=== PATIENT | female | born 1940 | race Caucasian/White ===

== ENCOUNTER 2023-04-04 08:58 | Emergency (ER) | payer MEDICARE, SELFPAY ==
[2023-04-04 09:06] VITALS: BP 160/77; PULSE 87; O2SAT 97
[2023-04-04 09:09] VITALS: BP 160/77; PULSE 96; PULSE 97; RESP 17; TEMP 36.6; O2SAT 96; O2SAT 97; BMI 37.5
--- NOTE | 2023-04-04 09:15 | CT_ITS ---
FINAL REPORT CLINICAL HISTORY: fall from bed, head injury FINDINGS: Axial CT images of the cervical spine were obtained without contrast. Sagittal and coronal reformatted images were also obtained. This study was performed with techniques to keep radiation doses as low as reasonably achievable (ALARA). Individualized dose reduction techniques using automated exposure control or adjustment of mA and/or kV according to the patient's size were employed. There is no evidence of fracture or dislocation. There are moderate degenerative changes. There is mild anterolisthesis of C4 on 5. Multilevel neuroforaminal narrowing is identified. IMPRESSION: No acute fracture. Reviewed, Interpreted and Dictated by Len Najera III, MD Transcribed by Laurita Cobos Authenticated and [facility]
--- NOTE | 2023-04-04 09:15 | CT_ITS ---
FINAL REPORT CLINICAL HISTORY: fall from bed, head injury, hit right side ear. small lac on ear FINDINGS: Axial images of the head were obtained without contrast. Coronal reformatted images were also obtained. This study was performed with techniques to keep radiation doses as low as reasonably achievable (ALARA). Individualized dose reduction techniques using automated exposure control or adjustment of mA and/or kV according to the patient''s size were employed. There is generalized age-appropriate atrophy. Periventricular low-attenuation areas are seen consistent with mild chronic ischemic changes. There is no evidence of intracranial hemorrhage or mass. There is no evidence of acute infarct. There are several chronic bilateral lacunar infarcts. There is no evidence of shift of the midline structures. No skull abnormality is seen on the bone window images. IMPRESSION: Atrophy and mild periventricular chronic ischemic changes. No acute intracranial abnormality identified. Reviewed, Interpreted and Dictated by Len Najera III, MD Transcribed by Laurita Cobos Authenticated and [facility]
--- NOTE | 2023-04-04 09:16 | HMH.EDGENADL ---
Discharge Plan Disposition Patient Disposition: Home, Self-Care Condition: Good Referrals Follow up/Referrals: Chelsie Crews [Primary Care Provider] - See instructions Activity Restrictions/Add. Instructions Additional Instructions/Restrictions: You were evaluated in the emergency department today. Please keep your dressing on for the next 2 hours. Monitor closely for any developing hematoma, which will be indicated by significant swelling and purple discoloration to the ear. Return to the emergency department should this develop. Also monitor for signs of infection, such as redness, warmth, pus draining from the wounds, or other concerns. Return to the emergency department should this happen. Return to the emergency department for any premature dissolving of sutures or dehiscence of the wound. Keep the area clean and dry. Do not submerge under any water. Do not use peroxide or alcohol on the area. The sutures will dissolve on their own. Clinical Impressions Clinical Impression: Complex laceration of right ear Qualifiers: Encounter type: initial encounter Qualified Code(s): S01.311A - Laceration without foreign body of right ear, initial encounter Instructions Patient Instructions: DI for Laceration Repair Discharge ED Provider: Sade Pinedo General Adult HPI General Chief complaint: Wound/Laceration Stated complaint: [id number] right ear injury Time Seen by Provider: 04/04/23 09:05 Mode of Arrival: Ambulatory Source of Information: Patient Limitations: No Limitations Description of Symptoms (Recalled from ER Triage Doc. by RN): Pt states that at approx 0500 she rolled out of her bed and sustained a laceration on her right ear. Patient reports that she did not lose consciousness. Denies any neck or back pain. Denies any injury other than the laceration on her ear. Pt is alert and oriented x 4 and gcs 15 upon arrival. History of Present Illness HPI narrative: This patient is an 82-year-old female presented to the emergency department with concern for laceration to her right ear. She states that she rolled out of bed at approximately 5:00 this morning and hit her ear on the bedside table. She did not lose consciousness and denies any pain. She states that she has been up at home cleaning and doing laundry since then, but her daughter urged her to come to get her ear looked at. She states her last tetanus shot was 2 days ago, as she got it updated with her yearly flu shot. She denies any headache, vision changes, numbness, tingling, chest pain, back pain, abdominal pain, or other concerns. She is ambulatory, alert and oriented, and has no other complaints at this time. She does not take blood thinners. Related Data Allergies Allergy/AdvReac Type Severity Reaction Status Date / Time No Known Allergies Allergy Unverified 07/16/17 14:11 [facility] Disclaimer: The information contained in this section may have been updated after the patient was seen, as this information can be updated by other users. Social History Smoking Status: Never smoker alcohol intake: never current occupational status: retired Travel in the last 8 weeks: None ROS Obtained: Yes All systems reviewed & no additional complaints except as documented Physical Exam General General appearance: alert and in no apparent distress Head Head exam: atraumatic and normocephalic Eye Eye exam: Present normal appearance, PERRL and EOMI ENT ENT exam: Present normal oropharynx, mucous membranes moist and other (Complex 3cm irregular laceration to the helix cartilage of the right ear that is hemostatic.); Absent normal external ear exam Neck Neck exam: Present normal inspection, full ROM and trachea midline; Absent tenderness Chest Chest inspection: Present normal inspection and symmetric chest wall rise; Absent tenderness Respiratory Respiratory exam: Present normal lung sounds bilatera
--- NOTE | 2023-04-04 10:33 | PC.NURSE ---
still at bs
[2023-04-04 11:56] VITALS: BP 128/80; PULSE 78; RESP 17; TEMP 36.7; O2SAT 98
== END 2023-04-04 11:58 | disposition home or self-care (01) ==
PROVIDERS: Emergency Provider Emergency Medicine; PCP Nurse Practitioner Family
DX: S01.311A Laceration without foreign body of right ear, initial encounter (principal); W06.XXXA Fall from bed, initial encounter
CPT/HCPCS: 12052; 70450; 72125; 99285

== ENCOUNTER 2024-10-06 08:28 | Inpatient (IN) | payer MEDICARE, SELFPAY ==
[2024-10-06] VITALS (17 sets, daily range): BP systolic 95–151; BP diastolic 61–123; PULSE 65–160; RESP 12–19; TEMP 36.6–36.8; O2SAT 91–98; BMI 40.7; BMI 42.9
--- NOTE | 2024-10-06 08:34 | ECG_ITS ---
APPROVED REPORT Exam: Resting ECG HR:163 bpm ECG Measurements Heart Rate 163 AXES QRSd 91 QRS -6 QT 272 T 86 QTc 362 Conclusion A-fib with RVR ST depressions Electronically signed by : TAVON MCMULLEN, 10/08/2024 23:22:15
--- NOTE | 2024-10-06 08:45 | XR_ITS ---
FINAL REPORT TECHNIQUE: Single view chest CLINICAL HISTORY: soa, palps FINDINGS: A single view of the chest was obtained. There is mild cardiomegaly. Patchy airspace opacities seen at the right lung base likely due to acute pneumonia. There is chronic scarring in the lungs bilaterally. There is no pneumothorax. IMPRESSION: Patchy airspace opacities of the right lung base likely due to acute pneumonia. Reviewed, Interpreted and Dictated by Bo Mckeon MD Transcribed by Fallon Taylor Authenticated and [facility] [place] [place]
--- NOTE | 2024-10-06 08:48 | PC.NURSE ---
RUBEN WALTERS NOTIFIED RESPIRATORY OF [facility]
[2024-10-06 08:50] LABS: Basophils # 0.1 K/mm3 (0-0.2); Basophils % 0.6 % (0.1-2.0); Eosinophils # 0.1 K/mm3 (0.0-0.4); Eosinophils % 1.1 % (0.1-12.0); Hematocrit 41.7 % (37.0-47.0); Hemoglobin 13.2 g/dL (12.2-16.2); Lymphocytes # 2.1 K/mm3 (0.7-4.5); Lymphocytes % 23.6 % (10-50); Mean Corpuscular HGB Conc 31.7 g/dL (31.8-35.4); Mean Corpuscular Hemoglobin 29.8 pg (27.0-31.2); Mean Corpuscular Volume 94.1 fl (81-99); Monocytes % 10.9 % (1.7-9.3); Neutrophils # 5.6 K/mm3 (1.8-7.8); Neutrophils % 63.6 % (37.0-80.0); Platelet Count 226 K/mm3 (142-424); Red Blood Count 4.43 M/mm3 (4.20-5.40); Red Cell Distribution Width 12.9 % (11.5-17.5); White Blood Count 8.8 K/mm3 (4.8-10.8)
[2024-10-06 08:52] LABS: Lactate Venous 1.9 mmol/L (0.4-2.0); VBG HCO3 24.2 mmol/L (23-30); VBG Oxygen Saturation 79.4 % (50-70); VBG PCO2 41.8 mmol/L (35-51); VBG PH 7.38 mmol/L (7.31-7.41); VBG Total CO2 25.5 mmol/L (23-27)
[2024-10-06] MEDS: RINGERS SOLUTION,LACTATED 500 ML 999 ML IV (09:00)
[2024-10-06] MEDS: ASPIRIN 81MG CHEWABLE TABLET 324 MG PO (09:00)
[2024-10-06] MEDS: METOPROLOL TARTRATE 5MG/5ML VIAL 5 MG IV ×2 (09:00→11:33)
[2024-10-06 09:01] LABS: Activated Partial Thrombo Time 22.8 seconds (22.5-28.5); INR 0.99 (0.9-1.1); Prothrombin Time 10.9 seconds (9.2-12.1)
--- NOTE | 2024-10-06 09:03 | ED_ITS ---
Discharge Plan Disposition Patient Disposition: Admitted Chief Complaint: Shortness of Breath/Dyspnea Clinical Impressions Clinical Impression: New onset of congestive heart failure, Atrial fibrillation, new onset Discharge ED Provider: Christian Lopez HPI General Chief Complaint: Shortness of Breath/Dyspnea Stated Complaint: SOA swelling in both feet Time Seen by Provider: 10/06/24 08:36 History of Present Illness HPI narrative: Please note that above description of symptoms, in this electronic medical record under categorization of recalled from ER triage doctor by RN are reflective of an initial nursing assessment, however, is not reflective of my full history and physical exam that was personally taken and clarified. Consequentially, this preceding description of symptoms, which may include the patient's categorized chief complaint in the EMR, do not reflect my personal clinical impression, and the ultimate description of history of present illness and patient stated complaints should be deferred to this section of the note. Unless stated otherwise or congruent with this section of the note, additional signs, symptoms, or incongruence should be interpreted as inaccurate with my clinical impression. Related Data Home Medications ?Medication ?Instructions ?Recorded ?Confirmed hydrochlorothiazide 25 mg tablet 25 mg PO DAILY 10/06/24 10/06/24 sertraline 100 mg tablet 100 mg PO DAILY 10/06/24 10/06/24 simvastatin 40 mg tablet 40 mg PO DAILY 10/06/24 10/06/24 tramadol 50 mg tablet 50 mg PO TID 10/06/24 10/06/24 Allergies Allergy/AdvReac Type Severity Reaction Status Date / Time No Known Allergies Allergy Verified 10/06/24 09:06 [facility] Disclaimer: The information contained in this section may have been updated after the patient was seen, as this information can be updated by other users. Social History Smoking Status: Never smoker alcohol intake: never current occupational status: retired Travel in the last 8 weeks: None Have you lived/traveled outside [place] in past 30 days?: No Contact w/someone who lives/traveled outside US past 30 days?: No Exposure to someone with infectious disease in past 14 days?: No Do you have a fever (greater than 100.4 F or 38 C)?: No Have you tested positive for COVID-19: No Exposed to someone with COVID-19 in past 14 days?: No Do you have a sore throat?: No Do you have a cough?: No Do you have any weakness?: No Do you have any diarrhea?: No Are you experiencing any unusual bleeding?: No Do you have any muscle aches/pain?: No Do you have any abdominal pain?: No Are you experiencing loss of taste or smell?: No ROS Obtained: Yes All systems reviewed & no additional complaints except as documented Physical Exam General General appearance: alert Neck Neck exam: Present trachea midline Chest Chest inspection: Present normal inspection and symmetric chest wall rise Respiratory Respiratory exam: Absent respiratory distress, wheezes, stridor, accessory muscle use or prolonged expiratory phase Cardiovascular Cardiovascular exam: Present bradycardia, tachycardia and other (Pulses equal and symmetric in upper and lower extremities) Extremities Exam Extremities exam: Present edema Neurological Exam Neurological exam: Present alert, oriented X3 and CN II-XII intact Skin Skin exam: Present warm and dry; Absent cyanosis, diaphoresis or pallor HEART Score HEART Score HEART Score assessment performed?: Yes History (anamnesis): Moderately suspicious ECG: Non-specific disturbance Age: >65 years Risk factors: 3 or more risk factors Troponin: </= normal limit HEART Score: 6 Critical Care Critical Care Time Critical Care Time: Yes (cardiac) Attestation: On 10/06/24, the high probability of a clinically significant, sudden or life threatening deterioration of the following system(s) required my full and direct attention, intervention and personal management. The time I documented below is in addition to time spent performing reported procedures but includes the following listed in this critical care notation. Total Time Total Critical Care Time: 45 Medical Decision Making Medical Records Medical records reviewed: Yes I reviewed the patient's medical records. John Inquiry Pt receiving controlled substance: No John was queried for this patient: No Vital Signs Vital Signs: 10/06/24 08:50 10/06/24 09:00 10/06/24 09:31 Temperature 98.2 F Temperature Source Oral Pulse Rate 115 H 116 H Pulse Rate [Left] 160 H Respiratory Rate 16 19 14 Blood Pressure 135/81 95/62 L Blood Pressure [Right Arm] 127/86 Blood Pressure Mean 99 Blood Pressure Mean [Right Arm] 99 Blood Pressure Source [Right Arm] Automatic Cuff Blood Pressure Position [Right Arm] Sitting 02 Sat by Pulse Oximetry 97 98 94 L Oxygen Delivery Method Room Air Room Air Nasal Cannula Oxygen Flow Rate (LPM) 2 10/06/24 10:00 Temperature Temperature Source Pulse Rate 108 H Pulse Rate [Left] Respiratory Rate 13 Blood Pressure 116/90 Blood Pressure [Right Arm] Blood Pressure Mean Blood Pressure Mean [Right Arm] Blood Pressure Source [Right Arm] Blood Pressure Position [Right Arm] 02 Sat by Pulse Oximetry 98 Oxygen Delivery Method Nasal Cannula Oxygen Flow Rate (LPM) 2 Lab Data Labs: Lab Results 10/06/24 08:40: WBC 8.8, RBC 4.43, Hgb 13.2, Hct 41.7, MCV 94.1, MCH 29.8, MCHC 31.7 L, RDW 12.9, Plt Count 226, MPV 12.0 H, Neut % (Auto) 63.6, Lymph % (Auto) 23.6, Cataño % (Auto) 10.9 H, Eos % (Auto) 1.1, Baso % (Auto) 0.6, Neut # (Auto) 5.6, Lymph # (Auto) 2.1, Cataño # (Auto) 1.0, Eos # (Auto) 0.1, Baso # (Auto) 0.1, PT 10.9, INR 0.99, APTT 22.8, D-Dimer 0.58 H, VBG pH 7.38, VBG pCO2 41.8, VBG pO2 44.0 H, VBG HCO3 24.2, VBG Total CO2 25.5, VBG O2 Saturation 79.4 H, VBG Base Excess -1.0, VBG Lactic Acid 1.9, Sodium 138, Potassium 3.5, Chloride 103, Carbon Dioxide 29, Anion Gap 9.5, BUN 20 H, Creatinine 0.90, Estimated Creat Clear 78, Estimated GFR 60, Est GFR ( Amer) 72, Glucose 122 H, Calcium 9.6, Magnesium 1.6, Total Bilirubin 0.6, AST 44 H, ALT 37, Alkaline Phosphatase 113, Troponin I < 0.01, NT-Pro-B Natriuret Pep 3990 H, Total Protein 6.9, Albumin 4.4, Globulin 2.5, Albumin/Globulin Ratio 1.8, Lipase 70, Thyroxine (T4) 10.9 10/06/24 08:40 10/06/24 08:40 Response Orders (Tests/Meds): ED MEDICATIONS Generic Name Dose Route Start Last Admin Trade Name Freq PRN Reason Stop Dose Admin Enoxaparin Sodium 120 mg 10/06/24 10:00 10/06/24 09:55 Enoxaparin 120mg/0.8ml Syringe SUBCUT 11/05/24 09:59 120 mg Q12H FRANCOISE Administration Discontinued Medications Generic Name Dose Route Start Last Admin Trade Name William PRN Reason Stop Dose Admin Aspirin 324 mg 10/06/24 08:45 10/06/24 09:00 Aspirin 81mg Chewable Tablet PO 10/06/24 08:46 324 mg ONCE ONE Administration Furosemide 60 mg 10/06/24 09:39 10/06/24 09:45 Furosemide 40mg/4ml Vial IV 10/06/24 09:40 60 mg ONCE ONE Administration Lactated Ringer's 500 mls @ 999 mls/hr 10/06/24 08:49 10/06/24 09:00 Lactated Ringer's 500ml IV 10/06/24 09:19 999 mls/hr .Q31M ONE Administration Metoprolol Tartrate 5 mg 10/06/24 08:49 10/06/24 09:00 Metoprolol Tartrate 5mg/5ml Vial IV 10/06/24 08:50 5 mg ONCE ONE Administration ORDERS Category Date Time Status XR chest portable Stat Exams 10/06/24 08:45 Taken Complete Blood Count Auto Diff Stat Lab 10/06/24 08:40 Completed Comprehensive Metabolic Panel Stat Lab 10/06/24 08:40 Results D-Dimer Stat Lab 10/06/24 08:40 Completed HIV Combo Stat Lab 10/06/24 08:40 Received Hepatitis C Ab Qual. W/ RFX Stat Lab 10/06/24 08:40 Received Lipase Stat Lab 10/06/24 08:40 Results Magnesium Stat Lab 10/06/24 08:40 Results NT Pro Brain Natriuretic Pep. Stat Lab 10/06/24 08:40 Results PT INR [Prothrombin Time INR] Stat Lab 10/06/24 08:40 Completed PTT [Activated Partial Thrombo Time] Stat Lab 10/06/24 08:40 Completed T4 (Thyroxine) Stat Lab 10/06/24 08:40 Results TSH [Thyroid Stimulating Hormone] Stat Lab 10/06/24 08:40 Results Troponin I Q3H Lab 10/06/24 11:45 Ordered Troponin I Q3H Lab 10/06/24 14:45 Ordered Troponin I Stat Lab 10/06/24 08:40 Results Venous Blood Gas Stat RT 10/06/24 08:40 Completed MDM Narrative Medical Decision Narrative: 83-year-old female presenting with a chief complaint of shortness of breath for 7 days. Patient believes that the symptoms coincided with changing her CPAP mask around 7 days ago. 3 days after starting a new CPAP mask patient states that she had shortness of breath and was having trouble walking around her house and completing ADLs, whereas previously she was walking 1 to 2 miles a day without issue. Also states that she has been having difficulty lying flat elevating her head at night. No cough, fever, or systemic signs or symptoms. Patient has a past medical history of hyperlipidemia, chronic bilateral shoulder pain, and occasional leg swelling for which she is taking simvastatin, tramadol, and hydrochlorothiazide chronically. She is known to Chelsie Crews NP at , and does not follow-up with any additional specialists for any other comorbid conditions. Patient admits to recent onset edema in her bilateral lower extremities. Patient denies any cough, sore throat, and heart palpitations. History was obtained via conversation with patient and daughter. On arrival, patient hemodynamically stable, alert, oriented x4, appropriate, GCS 15, moving all extremities spontaneously, pupils equal and reactive to light. Full physical exam performed and significant for tachycardia on heart auscultation and +2 pitting edema in the bilaterally lower extremities. Differential includes new onset CHF, electrolyte abnormalities, acute NSTEMI, acute thyrotoxicosis, PE, among others. Patient was given 5 mg metoprolol for symptomatic management and correction of underlying abnormalities. Patient placed on continuous cardiac monitoring and continuous pulse ox with initial blood pressure 127/86, heart rate 160, saturation 97 on room air. Independent interpretation of EKG shows A-fib with RVR 163 bpm with no acute ischemic change. QRS 91, QTc 362. Normal axis. Workup independently interpreted and significant for normal blood counts, nonactionable coags. D- dimer is years and age-adjusted negative. Patient's gas nonactionable with normal pH, normal CO2, normal bicarb and normal lactate. Chemistry nonactionable with normal kidney function. Patient's troponin is negative, but BNP nearly 4000. On independent interpretation of imaging, patient has dependent pulmonary edema. See radiology read for full review of final results. Heart score 6. On reevaluation, patient still resting comfortably. Given Lovenox and 60 mg IV Lasix because patient Lasix na?ve. Hospital medicine contacted and case was discussed at length, patient to be admitted for new onset CHF, likely exacerbating new onset A-fib. Because patient high risk for clinical decompensation, deemed appropriate for inpatient admission. Results were relayed to patient who voiced understanding and patient was agreeable to inpatient admission and management. Patient was admitted to the hospital for further definitive management. Scallop Shucker disclaimer Much of this encounter note is an electronic azure principal solution specialist spoken language to printed text. Electronic azure principal solution specialist of the spoken language may permit errors. Although I have reviewed the note, some errors may still exist.
[2024-10-06 09:04] LABS: Albumin Level 4.4 g/dl (3.5-5.0); Chloride 103 mmol/L (98-107); Sodium 138 mmol/L (136-145)
[2024-10-06 09:05] LABS: Potassium 3.5 mmoL/L (3.5-5.1)
[2024-10-06 09:07] LABS: Alanine Aminotransferase 37 U/L (12-78); Albumin/Globulin Ratio 1.8 (1.1-1.8); Alkaline Phosphatase 113 U/L (38-126); Anion Gap 9.5 mEq/L (5-15); Aspartate Amino Transferase 44 U/L (14-36); Bilirubin,Total 0.6 mg/dl (0.2-1.3); Blood Urea Nitrogen 20 mg/dl (7-17); Carbon Dioxide 29 mmol/L (22.0-30.0); Creatinine Clearance Estimated 78 mL/min (50-200); Estimated Glomerular Filt Rate 60 ml/min (>60); GFR (African American) 72 ML/MIN (>60); Globulin 2.5 g/dL (1.3-3.2); Total Protein,Serum 6.9 g/dl (6.3-8.2)
[2024-10-06 09:08] LABS: Calcium 9.6 mg/dl (8.4-10.2); Glucose 122 mg/dl (74-100); Lipase 70 U/L (23-300); Magnesium 1.6 mg/dl (1.6-2.3)
--- NOTE | 2024-10-06 09:10 | PC.NURSE ---
Stopped fluids per order
[2024-10-06 09:18] LABS: D-Dimer 0.58 ug/mL (0.0-0.5)
[2024-10-06 09:19] LABS: NT Pro Brain Natriuretic Pep. 3990 pg/mL (0-450)
[2024-10-06 09:26] LABS: T4 (Thyroxine) 10.9 ug/dl (5.53-11.0)
[2024-10-06 09:27] LABS: Troponin I < 0.01 ng/ml (0.00-0.034)
[2024-10-06] MEDS: FUROSEMIDE 40MG/4ML VIAL 60 MG IV (09:45)
--- NOTE | 2024-10-06 09:47 | PC.NURSE ---
HS aware of admission
[2024-10-06] MEDS: ENOXAPARIN 120MG/0.8ML SYRINGE 120 MG SUBCUT (09:55)
--- NOTE | 2024-10-06 10:37 | CA_ITS ---
APPROVED REPORT EXAM: Comprehensive 2D, Doppler, and color-flow Echocardiogram Larry Car Operator: Joanie Tyler RVT Ht: 5 ft 7 in Wt: 260lbs BSA: 2.26 BP: 131/66 mmHg Indications: A-FIB,CHF,SOA,MARCO A,HTN,HLD Echo Enhancing Agent Indication: Endocardial border delineation Agent(s) / Amount(s) Used: Definity 2 cc 2D Dimensions IVSd 1.44 cm F: 0.6-1.0 LVEF (Visual) 58.30 % PWd 1.29 cm F: 0.6 - 1.0 LA Volume 67.80 mL LVDd 4.26 cm F: 3.9 - 5.3 LA Volume Index 30.00 mL/m2 (M/F) 16-34 LVDs 2.96 cm F: 2.2 - 3.5 EF AP4 46.40 % Left Atrium 4.92 cm F: 2.7 - 3.8 GL Strain -5.1 % RVID Base (AP4) 2.75 cm (M/F) 2.5-4.1 LVOT 2.01 cm (M/F) 1.5-2.5 M-Mode Dimensions LVDd 4.26 cm (3.5-5.7) Ao Diam 2.56 cm (2.0-3.7) LVDs 2.96 cm (3.5-5.7) IVSd 1.44 cm (0.6-1.1) PWd 1.29 cm (0.6-1.1) FS 30.50% LV Diastology MED E' 6.0 (>= 7 cm/sec) LAT E' 9.4 (>= 10 cm/sec) Aortic Valve LVOT Max 87.0 (70-110 cm/s) JHOANA Index 1.05 cm2/m2 LVOT VTI 15.95 cm AoV Peak Benedict. 116.0 (50-130 cm/s) AO Peak GR. 3.80 mmHg AO Mean GR. 3.10 (<5 mmHg) AO VTI 21.2 (18-25 cm) JHOANA (VTI) 2.38 (2.5-4.5 cm2) Tricuspid Valve TR P. Velocity 335.00 cm/s RAP Estimate 10.00 mmHg RVSP 54.90 mmHg Left Ventricle The left ventricle is normal size. The left ventricular systolic function is low normal. There is increased LV wall thickness. IVSD is 1.4 cm. The septum is asynchronous. Diastolic function is indeterminate. No left ventricle thrombus noted on this study. LVEF is 50%. Right Ventricle The right ventricle is mildly to moderately dilated. Right ventricle is mildly hypokinetic. Atria The left atrium is mildly dilated. Right atrium is mildly dilated. There is no Doppler evidence of interatrial shunt. Aortic Valve The aortic valve is mildly thickened. Trace aortic regurgitation. There is no aortic valvular stenosis. Mitral Valve The mitral valve leaflets are mildly thickened. No evidence of mitral valve stenosis. Mild mitral regurgitation. Tricuspid Valve Tricuspid valve is grossly normal in structure and function. Mild to moderate tricuspid regurgitation. RVSP is 40-45 mmHg. Pulmonic Valve The pulmonary valve is normal in structure. Trace pulmonic regurgitation. Great Vessels The aortic root is normal in size. The ascending aorta is not well-visualized. IVC is normal in size and collapses >50% with inspiration. Pericardium There is no pericardial effusion. Other Information Study Quality: Fair Conclusion Low normal LV systolic function (LVEF 50%). Increased LV wall thickness. IVSD is 1.4 cm. Asynchronous septum. Mild to moderate RV dilation with mild reduction in RV function. Mild biatrial dilation. Mild MR. Mild to moderate TR. Elevated RVSP 40-45 mmHg. In the setting of marked increased LV wall thickness, biatrial dilation, and presence of symptoms, further outpatient evaluation for infiltrative diseases is suggested with cardiac MRI (amyloidosis protocol), PYP nuclear scan, and amyloidosis lab testing. Electronically signed by : Felicia Ko MD 10/06/2024 15:06:03
--- NOTE | 2024-10-06 10:38 | PC.NURSE ---
received report from RUBEN Diaz. waiting on pt transfer to [facility] and stat room clean before transferring pt from ED
--- NOTE | 2024-10-06 10:38 | PC.NURSE ---
called report to Katherine RN, waiting on pt to be moved to floor and room to be cleaned.
[2024-10-06 11:01] LABS: HIV Combo NEGATIVE (Negative)
[2024-10-06 11:09] LABS: Hepatitis C Ab Qual. W/ RFX NEGATIVE (Negative)
--- NOTE | 2024-10-06 11:15 | CT_ITS ---
FINAL REPORT TECHNIQUE: The patient was injected with IV contrast. Axial images were obtained through the chest in a PE protocol. 3-D reconstruction images were also performed. Individualized dose reduction techniques using automated exposure control or adjustment of the MA and/or KV according to patient's size were employed. CLINICAL HISTORY: elevated d-dimer COMPARISON: None FINDINGS: Mediastinal vasculature is adequately opacified. No pulmonary artery filling defects are identified to suggest PE. There is no aortic dissection. There is no axillary adenopathy. There is no hilar or mediastinal adenopathy. The heart size is normal. Small bilateral pleural effusions are present. Limited images of the upper abdomen are unremarkable. Patchy bibasilar airspace infiltrates are noted in the right middle lobe and bilateral lower lobes consistent with acute pneumonia. IMPRESSION: Patchy bibasilar airspace infiltrates in the right middle lobe and bilateral lower lobes, consistent with acute pneumonia. Small bilateral pleural effusions. No evidence of pulmonary emboli. Reviewed, Interpreted and Dictated by Bo Mckeon MD Transcribed by Katerine Foley Authenticated and [facility]
--- NOTE | 2024-10-06 11:23 | EXP.CARD.CON ---
History of Present Illness History of Present Illness Consult date: 10/06/24 Requesting physician: Jordy Cornejo Consult reason: shortness of breath Chief complaint: SOA History of present illness: This is an 83-year-old white female with past medical history of hypertension, obstructive sleep apnea and hyperlipidemia who presented to emergency department with complaints of shortness of breath x 7 days. Patient reports symptoms started after adjustments were made to her CPAP machine that she wears in the evening associated with lower extremity edema and orthopnea. Denies fever or cough. Reports intermittent episodes of left-sided chest pain. Upon presentation to emergency department EKG showed A-fib RVR at a rate of 163. She was given Lopressor 5 mg which slowed rate down to 120s. Labs as follow: WBC 8.8, hematocrit 41.7, D-dimer positive, sodium 138, potassium 3.5, BUN 20, creatinine 0.9, troponin negative, proBNP 3990. Chest x-ray shows patchy airspace opacities of the right lung base likely due to acute pneumonia. Patient was given Lovenox and Lasix in ER CTA chest and echocardiogram are pending. Patient is being admitted for A-fib RVR with new onset CHF. [facility] Disclaimer: The information contained in this section may have been updated after the patient was seen, as this information can be updated by other users. Social History Smoking Status: Never smoker alcohol intake: never current occupational status: retired Travel in the last 8 weeks: None Have you lived/traveled outside US in past 30 days?: No Contact w/someone who lives/traveled outside US past 30 days?: No Exposure to someone with infectious disease in past 14 days?: No Do you have a fever (greater than 100.4 F or 38 C)?: No Have you tested positive for COVID-19: No Exposed to someone with COVID-19 in past 14 days?: No Do you have a sore throat?: No Do you have a cough?: No Do you have any weakness?: No Do you have any diarrhea?: No Are you experiencing any unusual bleeding?: No Do you have any muscle aches/pain?: No Do you have any abdominal pain?: No Are you experiencing loss of taste or smell?: No Review of Systems Review of Systems Review of systems:: pertinent systems reviewed and negative unless documented below *Cardiovascular Cardiovascular: Reports chest pain, Reports dyspnea on exertion and Reports leg edema *Respiratory Respiratory: Reports dyspnea on exertion Exam Data for Last 24 hours Vital signs and Labs for Last 24 Hours: Temp Pulse Resp BP Pulse Ox O2 Del Method O2 Flow Rate 98.2 F 124 H 17 130/74 97 Nasal Cannula 2 10/06/24 08:50 10/06/24 10:31 10/06/24 10:31 10/06/24 10:31 10/06/24 10:31 10/06/24 10:31 10/06/24 10:31 Laboratory Results - last 24 hr 10/06/24 08:40: WBC 8.8, RBC 4.43, Hgb 13.2, Hct 41.7, MCV 94.1, MCH 29.8, MCHC 31.7 L, RDW 12.9, Plt Count 226, MPV 12.0 H, Neut % (Auto) 63.6, Lymph % (Auto) 23.6, [place] % (Auto) 10.9 H, Eos % (Auto) 1.1, Baso % (Auto) 0.6, Neut # (Auto) 5.6, Lymph # (Auto) 2.1, [place] # (Auto) 1.0, Eos # (Auto) 0.1, Baso # (Auto) 0.1, PT 10.9, INR 0.99, APTT 22.8, D-Dimer 0.58 H, VBG pH 7.38, VBG pCO2 41.8, VBG pO2 44.0 H, VBG HCO3 24.2, VBG Total CO2 25.5, VBG O2 Saturation 79.4 H, VBG Base Excess -1.0, VBG Lactic Acid 1.9, Sodium 138, Potassium 3.5, Chloride 103, Carbon Dioxide 29, Anion Gap 9.5, BUN 20 H, Creatinine 0.90, Estimated Creat Clear 78, Estimated GFR 60, Est GFR ( Amer) 72, Glucose 122 H, Calcium 9.6, Magnesium 1.6, Total Bilirubin 0.6, AST 44 H, ALT 37, Alkaline Phosphatase 113, Troponin I < 0.01, NT-Pro-B Natriuret Pep 3990 H, Total Protein 6.9, Albumin 4.4, Globulin 2.5, Albumin/Globulin Ratio 1.8, Lipase 70, Thyroxine (T4) 10.9, HCV Ab NELLA w/Rflx PCR Qn Negative, HIV Ag/Ab Combo Qual Negative I & O for Last 24 hours: Intake & Output 10/03/24 10/05/24 10/05/24 10/06/24 23:59 00:59 23:59 23:59 Weight 260 lb Constitutional Constitutional: no acute distress *Routine Respiratory Exam Respiratory: Present CTA bilaterally and symmetric chest movement *Routine Cardiovascular Exam Cardiovascular: Present Normal S1, Normal S2 and irregular rhythm Comments: A-fib noted *Routine Abdominal Exam Abdominal: Present soft and normoactive bowel sounds; Absent tenderness *Routine Extremities Exam Extremities: Present edema, full ROM and normal capillary refill *Routine Skin Exam Skin: Present intact, dry and warm Detailed Neck Exam: Thyroids Thyroid: Absent bruit Meds Home Medications and Allergies Home Medications ?Medication ?Instructions ?Recorded ?Confirmed ?Type hydrochlorothiazide 25 mg tablet 25 mg PO DAILY 10/06/24 10/06/24 History sertraline 100 mg tablet 100 mg PO DAILY 10/06/24 10/06/24 History simvastatin 40 mg tablet 40 mg PO DAILY 10/06/24 10/06/24 History New Prescriptions to Start Prescriptions: Allergies Allergy/AdvReac Type Severity Reaction Status Date / Time No Known Allergies Allergy Verified 10/06/24 09:06 Assessment and Plan *Assessment and plan (1) Atrial fibrillation, new onset: Status: Acute Category: Medical Code(s): I48.91 - Unspecified atrial fibrillation (2) New onset of congestive heart failure: Status: Acute Category: Medical Code(s): I50.9 - Heart failure, unspecified Plan Afib RVR Chadsvasc score > 2 Right sided heart failure HFpEF Mild to moderate TR Elevated RVSP ProBNP nearly 4000 Troponin negative Achieved rate control with diltiazem bolus Echo: EF 50%, increased LV wall thickness. Asynchronous septum. Mild to moderate RV dilation with mild reduction in RV function. Mild biatrial dilation, mild MR and mild to moderate TR. Elevated RVSP 40-45. Recommend outpatient testing for amyloidosis. CTA chest: Patchy bibasilar airspace infiltrates in the right middle lobe and bilateral lower lobes consistent with acute pneumonia. Small bilateral pleural effusions with no evidence of pulmonary emboli Lovenox given in emergency department. Lasix 60 mg IV x 1 given in emergency department. Start Lasix 40mg IV twice daily Start Diltiazem 240mg ER p.o. daily Start Jardiance 10 mg p.o. daily Start Xarelto 20 mg p.o. daily Community-acquired pneumonia Noted on chest x-ray and CTA Further management to primary service and pulm service HLD LDL goal < 100, continue statin HTN Will adjust medications after patient has been diuresed CV summary 10/06/2024: Echocardiogram shows a low normal ejection fraction of 50% and right sided dilation with mild reduction in RV function. Please diurese patient with Lasix 40 mg IV BID and start patient on diltiazem 240 mg p.o. daily, Xarelto 20 mg p.o. daily and Jardiance 10 mg p.o. daily. Cardiac meds: Lasix 40 mg IV twice daily Diltiazem 240 mg ER p.o. daily Jardiance 10 mg p.o. daily Xarelto 20 mg p.o. daily Simvastatin 40 mg p.o. daily
--- NOTE | 2024-10-06 11:32 | PC.NURSE ---
Patients marjorie did not work so she needed a new one. myself and ginny Oliveros put a new one on her and radiology came and took her.
--- NOTE | 2024-10-06 11:38 | PC.NURSE ---
PT IS AT CT
[2024-10-06] MEDS: IOPAMIDOL-370 (76%);100ML BOTTLE 70 ML IV (11:46)
[2024-10-06] MEDS: SODIUM CHLORIDE 0.9% 10ML SYR (RAD ONLY) 10 ML IV (11:46)
[2024-10-06] MEDS: 0.9 % SODIUM CHLORIDE 50 ML VIAL IV (11:46)
--- NOTE | 2024-10-06 11:51 | PC.NURSE ---
1145hrs- second green top collected and sent to lab 1147hrs- patient administered 5mg of metoprolol
[2024-10-06 11:53] LABS: Thyroid Stimulating Hormone 6.58 uIU/mL (0.465-4.68)
--- NOTE | 2024-10-06 12:07 | PC.NURSE ---
pt tx from ER to ICU unit via stretcher @2421
--- NOTE | 2024-10-06 12:17 | PC.NURSE ---
pt arrived to ICU room 262
--- NOTE | 2024-10-06 12:26 | HMH.PHAINT1 ---
Pharmacy Intervention Comments: HOME MEDICATION LIST VERIFIED USING LIST FROM OUTPATIENT PHARMACY
[2024-10-06] MEDS: CEFTRIAXONE SODIUM 2 GM in 0.9 % SODIUM CHLORIDE 100 ML IV (12:46)
[2024-10-06] MEDS: AZITHROMYCIN 250MG TABLET 500 MG PO (12:47)
[2024-10-06] MEDS: dilTIAZem 25MG/5ML VIAL 20 MG IV (12:47)
--- NOTE | 2024-10-06 13:00 | P.HP_ITS ---
History of Present Illness *Admission Date: 10/06/24 *Reason for visit:: Shortness of breath *History of present illness: Estefania Ramires is a 83-year-old female with a medical history significant for hypertension, hyperlipidemia, anxiety/depression who presents with 10-day onset of worsening shortness of breath. Patient and daughter state patient was recently fitted with a new CPAP mask as the previous one was uncomfortable, and over the past 10 days has noted increasing shortness of breath and leg swelling. Also endorses orthopnea, denies chest pain, abdominal pain, fever/chills. No cardiac history, CVA. On presentation, patient was noted to be in A-fib RVR in the 160s. Other workup significant for BNP 3990, TSH 6.58, CTA chest showing bibasilar pneumonia with small pleural effusions. She was given aspirin 324 mg, IV Lopressor 5 mg, Lasix 60 mg, Lovenox 120 mg. Case discussed with ED provider and decision was made to admit patient for new onset A-fib RVR, heart failure, and community-acquired pneumonia. [facility] Disclaimer: The information contained in this section may have been updated after the patient was seen, as this information can be updated by other users. Social History Smoking Status: Never smoker alcohol intake: never current occupational status: retired Travel in the last 8 weeks: None Have you lived/traveled outside US in past 30 days?: No Contact w/someone who lives/traveled outside US past 30 days?: No Exposure to someone with infectious disease in past 14 days?: No Do you have a fever (greater than 100.4 F or 38 C)?: No Have you tested positive for COVID-19: No Exposed to someone with COVID-19 in past 14 days?: No Do you have a sore throat?: No Do you have a cough?: No Do you have any weakness?: No Do you have any diarrhea?: No Are you experiencing any unusual bleeding?: No Do you have any muscle aches/pain?: No Do you have any abdominal pain?: No Are you experiencing loss of taste or smell?: No Meds Home Medications and Allergies Home Medications ?Medication ?Instructions ?Recorded ?Confirmed ?Type hydrochlorothiazide 25 mg tablet 25 mg PO DAILY 10/06/24 10/06/24 History sertraline 100 mg tablet 100 mg PO DAILY 10/06/24 10/06/24 History simvastatin 40 mg tablet 40 mg PO DAILY 10/06/24 10/06/24 History New Prescriptions to Start Prescriptions: Allergies Allergy/AdvReac Type Severity Reaction Status Date / Time No Known Allergies Allergy Verified 10/06/24 09:06 Exam Data for Last 24 hours Vital signs and Labs for Last 24 Hours: Temp Pulse Resp BP Pulse Ox O2 Del Method O2 Flow Rate 97.8 F 140 H 18 141/79 H 92 L Room Air 2 10/06/24 12:31 10/06/24 12:31 10/06/24 12:31 10/06/24 12:31 10/06/24 12:10/06/24 12:10/06/24 11:01 Laboratory Results - last 24 hr 10/06/24 08:40: WBC 8.8, RBC 4.43, Hgb 13.2, Hct 41.7, MCV 94.1, MCH 29.8, MCHC 31.7 L, RDW 12.9, Plt Count 226, MPV 12.0 H, Neut % (Auto) 63.6, Lymph % (Auto) 23.6, [place] % (Auto) 10.9 H, Eos % (Auto) 1.1, Baso % (Auto) 0.6, Neut # (Auto) 5.6, Lymph # (Auto) 2.1, [place] # (Auto) 1.0, Eos # (Auto) 0.1, Baso # (Auto) 0.1, PT 10.9, INR 0.99, APTT 22.8, D-Dimer 0.58 H, VBG pH 7.38, VBG pCO2 41.8, VBG pO2 44.0 H, VBG HCO3 24.2, VBG Total CO2 25.5, VBG O2 Saturation 79.4 H, VBG Base Excess -1.0, VBG Lactic Acid 1.9, Sodium 138, Potassium 3.5, Chloride 103, Carbon Dioxide 29, Anion Gap 9.5, BUN 20 H, Creatinine 0.90, Estimated Creat Clear 78, Estimated GFR 60, Est GFR ( Amer) 72, Glucose 122 H, Calcium 9.6, Magnesium 1.6, Total Bilirubin 0.6, AST 44 H, ALT 37, Alkaline Phosphatase 113, Troponin I < 0.01, NT-Pro-B Natriuret Pep 3990 H, Total Protein 6.9, Albumin 4.4, Globulin 2.5, Albumin/Globulin Ratio 1.8, Lipase 70, TSH 6.58 H, Thyroxine (T4) 10.9, HCV Ab NELLA w/Rflx PCR Qn Negative, HIV Ag/Ab Combo Qual Negative I & O for Last 24 hours: Intake & Output 10/03/24 10/05/24 10/05/24 10/06/24 23:59 00:59 23:59 23:59 Weight 124.341 kg Constitutional Constitutional: no acute distress *Routine HEENT Exam Head: Present normocephalic Eye: Present EOMI and PERRL ENT: Present mucous membranes moist *Routine Neck Exam Neck: Present supple; Absent lymphadenopathy *Routine Respiratory Exam Respiratory: Present CTA bilaterally *Routine Cardiovascular Exam Cardiovascular: Present tachycardia and irregular rhythm *Routine Abdominal Exam Abdominal: Present soft and normoactive bowel sounds; Absent tenderness *Routine Rectal Exam Rectal:: deferred *Routine Genitalia Exam Genitalia:: deferred *Routine Extremities Exam Extremities: Present edema; Absent cyanosis or clubbing Comments: Bilateral lower extremity 1+ pitting edema. *Routine Skin Exam Skin: Present warm; Absent rash *Routine Neurological Exam Neurological: Present alert and oriented X3 Assessment and Plan *Assessment and plan (1) Atrial fibrillation, new onset: Status: Acute Category: Medical Code(s): I48.91 - Unspecified atrial fibrillation (2) New onset of congestive heart failure: Status: Acute Category: Medical Code(s): I50.9 - Heart failure, unspecified Plan Estefania Ramires is a 83-year-old female with a medical history significant for hypertension, hyperlipidemia, anxiety/depression who presents with 10-day onset of worsening shortness of breath. Patient and daughter state patient was recently fitted with a new CPAP mask as the previous one was uncomfortable, and over the past 10 days has noted increasing shortness of breath and leg swelling. Also endorses orthopnea, denies chest pain, abdominal pain, fever/chills. No cardiac history, CVA. On presentation, patient was noted to be in A-fib RVR in the 160s. Other workup significant for BNP 3990, TSH 6.58, CTA chest showing bibasilar pneumonia with small pleural effusions. She was given aspirin 324 mg, IV Lopressor 5 mg, Lasix 60 mg, Lovenox 120 mg. Case discussed with ED provider and decision was made to admit patient for new onset A-fib RVR, heart failure, and community-acquired pneumonia. #A-fib RVR, new onset #Heart failure, new onset, unknown type ? Ten days of progressive shortness of breath, with lower extremity and pulmonary edema. Also noted to have pneumonia, likely triggering. ? Cardiology consulted, given IV diltiazem 20 mg bolus. Responded transiently to HR 90s, now back in 120s. ? [id number] score 5. Therapeutic Lovenox for now, likely start DOAC tomorrow. ? Pending ECHO to assess LVEF before starting oral diltiazem versus other agent. ? IV Lasix 40 mg twice daily. Consider spironolactone pending BP response to oral diltiazem. ? Follow-up respiratory panel. #Community-acquired pneumonia ? CTA chest shows bibasilar pneumonia, WBC and procalcitonin normal. No signs of sepsis. ? Ceftriaxone, azithromycin day 1. ? Follow-up sputum, blood cultures. #Hypertension ? Hold home hydrochlorothiazide. Continue Lasix, may start diltiazem and spironolactone as above. #Hyperlipidemia ? Continue home simvastatin #Anxiety/depression ? Continue home sertraline 100 mg. Full code DVT prophylaxis: Therapeutic Lovenox.
[2024-10-06 13:20] LABS: Troponin I < 0.01 ng/ml (0.00-0.034)
[2024-10-06 13:25] LABS: Triglycerides 205 mg/dl (30-150)
[2024-10-06 13:26] LABS: Chol/HDL Ratio 3.1 (1-3.5); Cholesterol 124 mg/dl (140-200); HDL Cholesterol 40 mg/dl (40-60); VLDL Cholesterol 41 mg/dL (0-40)
[2024-10-06 13:36] LABS: Direct LDL Cholesterol 45.66 mg/dL (100-129)
[2024-10-06] MEDS: DEFINITY US ECHO CONTRAST 2ML INJ 2 MG IV (14:21)
[2024-10-06 14:35] LABS: Procalcitonin 0.058 ng/mL (0.0-2.0)
[2024-10-06 14:52] LABS: Free T4 (Free Thyroxine) 1.36 ng/dl (0.78-2.19)
[2024-10-06 15:57] LABS: Troponin I < 0.01 ng/ml (0.00-0.034)
[2024-10-06] MEDS: EMPAGLIFLOZIN 10MG TABLET 10 MG PO (16:16)
[2024-10-06] MEDS: dilTIAZem ER 120MG CAPSULE 240 MG PO (16:17)
[2024-10-06] MEDS: FUROSEMIDE 40MG/4ML VIAL 40 MG IV (16:18)
[2024-10-06] MEDS: dilTIAZem HCL 100 MG in 0.9 % SODIUM CHLORIDE 100 ML IV (18:20)
[2024-10-06] MEDS: RIVAROXABAN 10MG TABLET 20 MG PO (18:24)
[2024-10-06] MEDS: PRAVASTATIN 40MG TAB 40 MG PO (20:07)
[2024-10-06] MEDS: DOXYCYCLINE HYCLATE 100 MG in 0.9 % SODIUM CHLORIDE 250 ML 166.667 MG IV (20:07)
[2024-10-07] VITALS (24 sets, daily range): BP systolic 113–179; BP diastolic 52–97; PULSE 69–128; RESP 12–22; TEMP 36.7–36.8; O2SAT 90–96; BMI 42.9
[2024-10-07] MEDS: dilTIAZem HCL 100 MG in 0.9 % SODIUM CHLORIDE 100 ML 15 MG IV (01:00)
[2024-10-07 01:04] LABS: Hemoglobin A1C 5.6 % (4.0-6.0)
[2024-10-07 05:41] LABS: Basophils % 0.5 % (0.1-2.0); Eosinophils # 0.2 K/mm3 (0.0-0.4); Eosinophils % 2.5 % (0.1-12.0); Hematocrit 36.7 % (37.0-47.0); Lymphocytes # 1.5 K/mm3 (0.7-4.5); Lymphocytes % 25.8 % (10-50); Mean Corpuscular HGB Conc 31.9 g/dL (31.8-35.4); Mean Corpuscular Hemoglobin 29.8 pg (27.0-31.2); Mean Corpuscular Volume 93.6 fl (81-99); Monocytes # 0.8 K/mm3 (0.1-1.0); Monocytes % 13.3 % (1.7-9.3); Neutrophils # 3.4 K/mm3 (1.8-7.8); Neutrophils % 57.7 % (37.0-80.0); Platelet Count 178 K/mm3 (142-424); Red Blood Count 3.92 M/mm3 (4.20-5.40)
[2024-10-07 05:48] LABS: Hemoglobin 11.8 g/dL (12.2-16.2)
[2024-10-07 06:05] LABS: Alanine Aminotransferase 31 U/L (12-78); Albumin Level 3.6 g/dl (3.5-5.0); Albumin/Globulin Ratio 1.6 (1.1-1.8); Alkaline Phosphatase 93 U/L (38-126); Anion Gap 9.1 mEq/L (5-15); Aspartate Amino Transferase 33 U/L (14-36); Bilirubin,Total 0.4 mg/dl (0.2-1.3); Blood Urea Nitrogen 21 mg/dl (7-17); Calcium 8.8 mg/dl (8.4-10.2); Carbon Dioxide 32 mmol/L (22.0-30.0); Chloride 100 mmol/L (98-107); Creatinine Clearance Estimated 39 mL/min (50-200); Estimated Glomerular Filt Rate 53 ml/min (>60); GFR (African American) 64 ML/MIN (>60); Globulin 2.2 g/dL (1.3-3.2); Glucose 105 mg/dl (74-100); Magnesium 1.6 mg/dl (1.6-2.3); Potassium 3.1 mmoL/L (3.5-5.1); Sodium 138 mmol/L (136-145); Total Protein,Serum 5.8 g/dl (6.3-8.2)
[2024-10-07] MEDS: EMPAGLIFLOZIN 10MG TABLET 10 MG PO (08:16)
[2024-10-07] MEDS: FUROSEMIDE 40MG/4ML VIAL 40 MG IV ×2 (08:16→15:33)
[2024-10-07] MEDS: CEFTRIAXONE 1 GM 1 GM in 0.9 % SODIUM CHLORIDE 50 ML IV (08:16)
[2024-10-07] MEDS: POTASSIUM CHLORIDE 20MEQ TAB 40 MEQ PO ×3 (08:16→15:34)
[2024-10-07] MEDS: SERTRALINE 100MG TABLET 100 MG PO (08:16)
[2024-10-07 08:17] LABS: Coronavirus 19, PCR Not Detected (NotDetected); Human Rhinovirus Not Detected (NotDetected); Influenza A, PCR Not Detected (NotDetected); Influenza B, PCR Not Detected (NotDetected); Respiratory Syncytial Virus Not Detected (NotDetected)
[2024-10-07] MEDS: SODIUM CHLORIDE 3% 15ML NEB 3 ML IH (08:18)
[2024-10-07] MEDS: DOXYCYCLINE HYCLATE 100 MG in 0.9 % SODIUM CHLORIDE 250 ML 166.667 MG IV ×2 (09:09→20:53)
[2024-10-07] MEDS: dilTIAZem HCL 100 MG in 0.9 % SODIUM CHLORIDE 100 ML 10 MG IV (09:09)
[2024-10-07] MEDS: dilTIAZem HCL 180MG CAP.ER.24H 360 MG PO (10:32)
--- NOTE | 2024-10-07 11:24 | EXP.CARD.PN ---
Subjective Subjective Date: 10/07/24 Time: 08:30 Principal diagnosis: A-fib RVR, new onset heart failure, community-acquired pneumonia Interval history: Patient remained A-fib RVR throughout the evening requiring a diltiazem drip. This morning patient remains in A-fib at a rate of 80. Reports shortness of breath is greatly improved. Diuresing well. Morning labs reviewed. Exam Data for Last 24 hours Vital signs and Labs for Last 24 Hours: Temp Pulse Resp BP Pulse Ox O2 Del Method O2 Flow Rate 98.2 F 86 22 131/97 H 90 L Room Air 2 10/07/24 08:00 10/07/24 10:00 10/07/24 10:00 10/07/24 10:00 10/07/24 10:00 10/07/24 11:00 10/07/24 08:00 Laboratory Results - last 24 hr 10/06/24 08:06: SARS-CoV-2 (PCR) Not detected, Influenza Type A (PCR) Not detected, Influenza Type B (PCR) Not detected, RSV (PCR) Not detected, Rhinovirus (PCR) Not detected 10/06/24 08:40: Hemoglobin A1c 5.6, Procalcitonin 0.058, TSH 6.58 H, Free T4 1.36 10/06/24 11:49: Troponin I < 0.01, Triglycerides 205 H, Cholesterol 124 L, LDL Cholesterol Direct 45.66 L, VLDL Cholesterol 41 H, HDL Cholesterol 40, Cholesterol/HDL Ratio 3.1 10/06/24 15:10: Troponin I < 0.01 10/07/24 05:18: WBC 6.0 D, RBC 3.92 L, Hgb 11.8 L D, Hct 36.7 L, MCV 93.6, MCH 29.8, MCHC 31.9, RDW 13.0, Plt Count 178, MPV 12.0 H, Neut % (Auto) 57.7, Lymph % (Auto) 25.8, [place] % (Auto) 13.3 H, Eos % (Auto) 2.5, Baso % (Auto) 0.5, Neut # (Auto) 3.4, Lymph # (Auto) 1.5, [place] # (Auto) 0.8, Eos # (Auto) 0.2, Baso # (Auto) 0.0, Sodium 138, Potassium 3.1 L, Chloride 100, Carbon Dioxide 32 H, Anion Gap 9.1, BUN 21 H, Creatinine 1.00, Estimated Creat Clear 39, Estimated GFR 53 L, Est GFR ( Amer) 64, Glucose 105 H, Calcium 8.8, Magnesium 1.6, Total Bilirubin 0.4, AST 33, ALT 31, Alkaline Phosphatase 93, Total Protein 5.8 L, Albumin 3.6 D, Globulin 2.2, Albumin/Globulin Ratio 1.6 I & O for Last 24 hours: Intake & Output 10/05/24 10/05/24 10/06/24 10/07/24 00:59 23:59 23:59 23:59 Intake Total 218.917 / 298.917 906.833 / 906.833 Output Total 1550 / 1550 1800 / 1800 Balance -1331.083 / -1251.083 -893.167 / -893.167 Weight 274 lb 2 oz 273 lb 11.2 oz Constitutional Constitutional: no acute distress *Routine Respiratory Exam Respiratory: Present wheezes and symmetric chest movement *Routine Cardiovascular Exam Cardiovascular: Present Normal S1, Normal S2, irregular rhythm and irregularly irregular *Routine Abdominal Exam Abdominal: Present soft and normoactive bowel sounds; Absent tenderness *Routine Extremities Exam Extremities: Present edema, full ROM and normal capillary refill *Routine Skin Exam Skin: Present intact, dry and warm Detailed Neck Exam: Thyroids Thyroid: Absent bruit Progress Note: A&P Assessment and plan (1) Atrial fibrillation, new onset: Status: Acute (2) New onset of congestive heart failure: Status: Acute Assessment and Plan Assessment and Plan for All Diagnoses:: Afib RVR Chadsvasc score > 2 Right sided heart failure HFpEF Mild to moderate TR Elevated RVSP ProBNP nearly 4000 on admission Troponin negative Achieved rate control with diltiazem bolus but then went back in afib rvr last night. Currently on dilt drip, rate controlled achieved Echo: EF 50%, increased LV wall thickness. Asynchronous septum. Mild to moderate RV dilation with mild reduction in RV function. Mild biatrial dilation, mild MR and mild to moderate TR. Elevated RVSP 40-45. Recommend outpatient testing for amyloidosis. CTA chest: Patchy bibasilar airspace infiltrates in the right middle lobe and bilateral lower lobes consistent with acute pneumonia. Small bilateral pleural effusions with no evidence of pulmonary emboli Lovenox given in emergency department. Continue Lasix 40mg IV twice daily Increase Diltizem to 360mg p.o. daily Add Toprol 12.5 mg p.o. daily Continue Jardiance 10 mg p.o. daily Continue Xarelto 15 mg p.o. daily Community-acquired pneumonia Noted on chest x-ray and CTA Further management to primary service and pulm service HLD LDL goal < 100, continue statin HTN Will adjust medications after patient has been diuresed CV summary 10/07/2024: Continue to diurese patient with Lasix 40 mg IV twice daily and increase diltiazem to 360 mg p.o. daily. Add Toprol 12.5mg po daily. Wean from Dilt drip. Cardiac meds: Lasix 40 mg IV twice daily Diltiazem ER 360 mg p.o. daily Toprol 12.5 mg p.o. daily Jardiance 10 mg p.o. daily Xarelto 15 mg p.o. daily Simvastatin 40 mg p.o. daily
[2024-10-07] MEDS: METOPROLOL SUCCINATE XL 25MG TABLET 12.5 MG PO ×2 (13:57→15:34)
--- NOTE | 2024-10-07 14:23 | EXP.PN ---
Subjective *Date: 10/07/24 *Time: 14:23 Interval history: Patient states she feels much better today, her heart rate intermittently in the 100s mostly in the 80s with diltiazem drip?weaning. Cardiology started oral diltiazem, metoprolol. Continue diuresis. Anticipate discharge tomorrow if heart rate better controlled. Exam Data for Last 24 hours Vital signs and Labs for Last 24 Hours: Temp Pulse Resp BP Pulse Ox O2 Del Method O2 Flow Rate 98.1 F 84 13 120/65 92 L Room Air 2 10/07/24 12:01 10/07/24 12:01 10/07/24 12:01 10/07/24 12:01 10/07/24 12:01 10/07/24 13:04 10/07/24 08:00 Laboratory Results - last 24 hr 10/06/24 08:06: SARS-CoV-2 (PCR) Not detected, Influenza Type A (PCR) Not detected, Influenza Type B (PCR) Not detected, RSV (PCR) Not detected, Rhinovirus (PCR) Not detected 10/06/24 08:40: Hemoglobin A1c 5.6, Procalcitonin 0.058, Free T4 1.36 10/06/24 15:10: Troponin I < 0.01 10/07/24 05:18: WBC 6.0 D, RBC 3.92 L, Hgb 11.8 L D, Hct 36.7 L, MCV 93.6, MCH 29.8, MCHC 31.9, RDW 13.0, Plt Count 178, MPV 12.0 H, Neut % (Auto) 57.7, Lymph % (Auto) 25.8, [place] % (Auto) 13.3 H, Eos % (Auto) 2.5, Baso % (Auto) 0.5, Neut # (Auto) 3.4, Lymph # (Auto) 1.5, [place] # (Auto) 0.8, Eos # (Auto) 0.2, Baso # (Auto) 0.0, Sodium 138, Potassium 3.1 L, Chloride 100, Carbon Dioxide 32 H, Anion Gap 9.1, BUN 21 H, Creatinine 1.00, Estimated Creat Clear 39, Estimated GFR 53 L, Est GFR ( Amer) 64, Glucose 105 H, Calcium 8.8, Magnesium 1.6, Total Bilirubin 0.4, AST 33, ALT 31, Alkaline Phosphatase 93, Total Protein 5.8 L, Albumin 3.6 D, Globulin 2.2, Albumin/Globulin Ratio 1.6 I & O for Last 24 hours: Intake & Output 10/05/24 10/05/24 10/06/24 10/07/24 00:59 23:59 23:59 23:59 Intake Total 218.917 / 186.756 0677.583 / 1365.583 Output Total 1550 / 1550 2175 / 2175 Balance -1331.083 / -1251.083 -809.417 / -809.417 Weight 124.341 kg 124.148 kg Constitutional Constitutional: no acute distress *Routine HEENT Exam Head: Present normocephalic Eye: Present EOMI and PERRL ENT: Present mucous membranes moist *Routine Neck Exam Neck: Present supple; Absent lymphadenopathy *Routine Respiratory Exam Respiratory: Present CTA bilaterally *Routine Cardiovascular Exam Cardiovascular: Present RRR *Routine Abdominal Exam Abdominal: Present soft and normoactive bowel sounds; Absent tenderness *Routine Extremities Exam Extremities: Present edema; Absent cyanosis or clubbing Comments: Lower extremity pitting edema 1+. *Routine Skin Exam Skin: Present warm; Absent rash *Routine Neurological Exam Neurological: Present alert and oriented X3 Assessment and Plan *Assessment and plan (1) Atrial fibrillation, new onset: Status: Acute Category: Medical Code(s): I48.91 - Unspecified atrial fibrillation (2) New onset of congestive heart failure: Status: Acute Category: Medical Code(s): I50.9 - Heart failure, unspecified Plan Estefania Ramires is a 83-year-old female with a medical history significant for hypertension, hyperlipidemia, anxiety/depression who presents with 10-day onset of worsening shortness of breath. Patient and daughter state patient was recently fitted with a new CPAP mask as the previous one was uncomfortable, and over the past 10 days has noted increasing shortness of breath and leg swelling. Also endorses orthopnea, denies chest pain, abdominal pain, fever/chills. No cardiac history, CVA. On presentation, patient was noted to be in A-fib RVR in the 160s. Other workup significant for BNP 3990, TSH 6.58, CTA chest showing bibasilar pneumonia with small pleural effusions. She was given aspirin 324 mg, IV Lopressor 5 mg, Lasix 60 mg, Lovenox 120 mg. Case discussed with ED provider and decision was made to admit patient for new onset A-fib RVR, heart failure, and community-acquired pneumonia. #A-fib RVR, new onset #HFpEF exacerbation #Right heart failure ? Ten days of progressive shortness of breath prior to admission, with lower extremity and pulmonary edema. Also noted to have pneumonia, likely triggering. Respiratory panel negative. ? Improved with diltiazem drip overnight, weaned today. Cardiology started oral diltiazem 360 mg daily. Added metoprolol succinate 25 mg daily for intermittent heart rate in the 100s. ? [id number] score 5. Xarelto 20 mg daily. ? ECHO reveals LVEF 50%, mild reduction in RV function. ? IV Lasix 40 mg twice daily. Started spironolactone 25 mg daily, Jardiance 10 mg. #Community-acquired pneumonia ? CTA chest shows bibasilar pneumonia, WBC and procalcitonin normal. No signs of sepsis. ? Ceftriaxone, doxycycline day 2. ? Follow-up sputum, blood cultures. #Hypertension ? Diltiazem, spironolactone, Lasix as above. #Hyperlipidemia ? Continue home simvastatin #Anxiety/depression ? Continue home sertraline 100 mg. Full code DVT prophylaxis: Xarelto
--- NOTE | 2024-10-07 17:08 | PC.NURSE ---
Patient able to tolerate po medications. Heart rate 80's-110's. Patient able to stand, walk, and sit in chair without difficulty. Oxygen weaned to room air and patient tolerating well, oxygen saturations mid 90's. Lung sounds diminished.
[2024-10-07] MEDS: ACETAMINOPHEN 325MG TAB 650 MG PO (17:20)
[2024-10-07] MEDS: SPIRONOLACTONE 25MG TABLET 25 MG PO (17:21)
[2024-10-07] MEDS: RIVAROXABAN 15MG TABLET 15 MG PO (17:21)
[2024-10-07] MEDS: PRAVASTATIN 40MG TAB 40 MG PO (20:53)
[2024-10-07] MEDS: TRAMADOL 50MG TABLET 50 MG PO (22:34)
[2024-10-08] VITALS (12 sets, daily range): BP systolic 122–151; BP diastolic 54–83; PULSE 82–110; RESP 14–20; TEMP 36.6–36.8; O2SAT 90–94; BMI 43.0
--- NOTE | 2024-10-08 04:09 | PC.NURSE ---
PT IS RESTING IN BED. ALERT AND ORIENTED X4. AFIB ON TELEMETRY. O2 SATURATION HAS MAINTAINED 90-92 % ON RA. LUNG SOUNDS DIMINISHED. ABDOMEN SOFT/NON TENDER WITH ACTIVE BOWEL SOUNDS. PT STATED HER LAST BOWEL MOVEMENT WAS YESTERDAY. 1+ EDEMA NOTED TO BILATERAL FEET/ANKLES. WILL CONTINUE TO MONITOR.
[2024-10-08 06:21] LABS: Basophils % 0.8 % (0.1-2.0); Eosinophils # 0.2 K/mm3 (0.0-0.4); Eosinophils % 4.3 % (0.1-12.0); Hematocrit 37.5 % (37.0-47.0); Hemoglobin 11.9 g/dL (12.2-16.2); Lymphocytes # 1.4 K/mm3 (0.7-4.5); Lymphocytes % 27.1 % (10-50); Mean Corpuscular HGB Conc 31.7 g/dL (31.8-35.4); Mean Corpuscular Hemoglobin 29.8 pg (27.0-31.2); Mean Platelet Volume 12.4 fl (7.4-10.4); Monocytes # 0.7 K/mm3 (0.1-1.0); Monocytes % 13.3 % (1.7-9.3); Neutrophils # 2.8 K/mm3 (1.8-7.8); Neutrophils % 54.3 % (37.0-80.0); Platelet Count 200 K/mm3 (142-424); Red Blood Count 3.99 M/mm3 (4.20-5.40); Red Cell Distribution Width 12.8 % (11.5-17.5); White Blood Count 5.1 K/mm3 (4.8-10.8)
[2024-10-08 06:44] LABS: Alanine Aminotransferase 30 U/L (12-78); Albumin Level 3.6 g/dl (3.5-5.0); Albumin/Globulin Ratio 1.5 (1.1-1.8); Alkaline Phosphatase 86 U/L (38-126); Anion Gap 8.7 mEq/L (5-15); Aspartate Amino Transferase 32 U/L (14-36); Bilirubin,Total 0.3 mg/dl (0.2-1.3); Blood Urea Nitrogen 20 mg/dl (7-17); Calcium 9.1 mg/dl (8.4-10.2); Carbon Dioxide 31 mmol/L (22.0-30.0); Chloride 103 mmol/L (98-107); Creatinine Clearance Estimated 39 mL/min (50-200); Estimated Glomerular Filt Rate 53 ml/min (>60); GFR (African American) 64 ML/MIN (>60); Globulin 2.4 g/dL (1.3-3.2); Glucose 110 mg/dl (74-100); Magnesium 1.7 mg/dl (1.6-2.3); Potassium 3.7 mmoL/L (3.5-5.1); Sodium 139 mmol/L (136-145)
[2024-10-08] MEDS: CEFTRIAXONE 1 GM 1 GM in 0.9 % SODIUM CHLORIDE 50 ML IV (08:41)
[2024-10-08] MEDS: FUROSEMIDE 40MG/4ML VIAL 40 MG IV (08:41)
[2024-10-08] MEDS: SERTRALINE 100MG TABLET 100 MG PO (08:42)
[2024-10-08] MEDS: EMPAGLIFLOZIN 10MG TABLET 10 MG PO (08:42)
[2024-10-08] MEDS: METOPROLOL SUCCINATE XL 25MG TABLET 25 MG PO (08:42)
[2024-10-08] MEDS: SPIRONOLACTONE 25MG TABLET 25 MG PO (08:42)
[2024-10-08] MEDS: dilTIAZem HCL 180MG CAP.ER.24H 360 MG PO (08:42)
[2024-10-08 09:04] LABS: Microscopic, Urine URINE MICROSCOPIC (MICROSCOPIC)
[2024-10-08 09:21] LABS: Appearance,Urine Clear (Clear); Bilirubin,Urine Negative (Negative); Blood, Urine Negative (Negative); Color,Urine Yellow (Yellow); Glucose,Urine (UA) Negative (Negative); Ketones,Urine Negative (Negative); Leukocyte Esterase,Urine Negative (Negative); Nitrate,Urine Negative (Negative); Protein,Urine Negative (Negative); Specific Gravity, Urine 1.015 (1.005-1.030); Squamous Epithelial Cell,Urine Occasional #/hpf (0-5); Urobilinogen,Urine 0.2 EU/dl (0.2)
--- NOTE | 2024-10-08 09:52 | P.PN_ITS ---
Subjective Subjective Date: 10/08/24 Time: 08:30 Principal diagnosis: A-fib RVR, new onset heart failure, community-acquired pneumonia Interval history: Doing well. Denies chest pain or soa. Remains afib with heart rate in the low 100s in the setting of acute illness. Morning labs reviewed. Exam Data for Last 24 hours Vital signs and Labs for Last 24 Hours: Temp Pulse Resp BP Pulse Ox O2 Del Method O2 Flow Rate 97.8 F 110 H 14 122/75 91 L Room Air 2 10/08/24 07:00 10/08/24 08:02 10/08/24 07:00 10/08/24 07:00 10/08/24 08:02 10/08/24 06:27 10/07/24 08:00 Laboratory Results - last 24 hr 10/06/24 08:06: SARS-CoV-2 (PCR) Not detected, Influenza Type A (PCR) Not detected, Influenza Type B (PCR) Not detected, RSV (PCR) Not detected, Rhinovirus (PCR) Not detected 10/08/24 02:10: Urine Color Yellow, Urine Appearance Clear, Urine pH 6.0, Ur Specific [place] 1.015, Urine Protein Negative, Urine Glucose (UA) Negative, Urine Ketones Negative, Urine Blood Negative, Urine Nitrate Negative, Urine Bilirubin Negative, Urine Urobilinogen 0.2, Ur Leukocyte Esterase Negative, Urine RBC None, Urine WBC None, Ur Squamous Epith Cells Occasional 10/08/24 05:26: WBC 5.1, RBC 3.99 L, Hgb 11.9 L, Hct 37.5, MCV 94.0, MCH 29.8, MCHC 31.7 L, RDW 12.8, Plt Count 200, MPV 12.4 H, Neut % (Auto) 54.3, Lymph % (Auto) 27.1, [place] % (Auto) 13.3 H, Eos % (Auto) 4.3, Baso % (Auto) 0.8, Neut # (Auto) 2.8, Lymph # (Auto) 1.4, [place] # (Auto) 0.7, Eos # (Auto) 0.2, Baso # (Auto) 0.0, Sodium 139, Potassium 3.7, Chloride 103, Carbon Dioxide 31 H, Anion Gap 8.7, BUN 20 H, Creatinine 1.00, Estimated Creat Clear 39, Estimated GFR 53 L , Est GFR ( Amer) 64, Glucose 110 H, Calcium 9.1, Magnesium 1.7, Total Bilirubin 0.3, AST 32, ALT 30, Alkaline Phosphatase 86, Total Protein 6.0 L, Albumin 3.6, Globulin 2.4, Albumin/Globulin Ratio 1.5 I & O for Last 24 hours: Intake & Output 10/05/24 10/06/24 10/07/24 10/08/24 23:59 23:59 23:59 23:59 Intake Total 218.917 / 742.960 1695.583 / 2405.583 Output Total 1550 / 1550 3175 / 3175 400 / 400 Balance -1331.083 / -1251.083 -769.417 / -769.417 -400 / -400 Weight 274 lb 2 oz 273 lb 11.2 oz 273 lb 12.8 oz Constitutional Constitutional: no acute distress *Routine Respiratory Exam Respiratory: Present CTA bilaterally and symmetric chest movement *Routine Cardiovascular Exam Cardiovascular: Present Normal S1, Normal S2, irregular rhythm and irregularly irregular *Routine Abdominal Exam Abdominal: Present soft and normoactive bowel sounds; Absent tenderness *Routine Extremities Exam Extremities: Present full ROM and normal capillary refill; Absent edema *Routine Skin Exam Skin: Present intact, dry and warm Detailed Neck Exam: Thyroids Thyroid: Absent bruit Progress Note: A&P Assessment and plan (1) Atrial fibrillation, new onset: Status: Acute (2) New onset of congestive heart failure: Status: Acute Assessment and Plan Assessment and Plan for All Diagnoses:: Afib RVR Chadsvasc score > 2 Right sided heart failure HFpEF Mild to moderate TR Elevated RVSP ProBNP nearly 4000 on admission Troponin negative Echo: EF 50%, increased LV wall thickness. Asynchronous septum. Mild to moderate RV dilation with mild reduction in RV function. Mild biatrial dilation, mild MR and mild to moderate TR. Elevated RVSP 40-45. Recommend outpatient testing for amyloidosis. CTA chest: Patchy bibasilar airspace infiltrates in the right middle lobe and bilateral lower lobes consistent with acute pneumonia. Small bilateral pleural effusions with no evidence of pulmonary emboli Continue Lasix, switch to 40mg po BID Continue Diltizem 360mg p.o. daily Continue Toprol but increase to 25mg po daily Continue Jardiance 10 mg p.o. daily Continue Xarelto 15 mg p.o. daily DC home with 2 week event monitor. Community-acquired pneumonia Noted on chest x-ray and CTA Further management to primary service and pulm service HLD LDL goal < 100, continue statin HTN Will adjust medications after patient has been diuresed CV summary 10/08/2024: Patient reports today is her birthday and she would like to go home if at all possible. Patient is CV stable for discharge home. Please continue below listed medications and discharge patient home in a 2-week event monitor. Patient can follow-up in cardiology clinic on Saturday. Will need outpatient amyloidosis testing and labs drawn on Saturday. Cardiac meds: Lasix 40 mg p.o. twice daily Diltiazem ER 360 mg p.o. daily Toprol 25 mg p.o. daily Jardiance 10 mg p.o. daily Xarelto 15 mg p.o. daily Simvastatin 40 mg p.o. daily
[2024-10-08] MEDS: DOXYCYCLINE HYCLATE 100 MG in 0.9 % SODIUM CHLORIDE 250 ML 166.667 MG IV (10:15)
--- NOTE | 2024-10-08 11:19 | P.DS_ITS ---
General Admission date:: 10/06/24 HPI HPI HPI: Estefania Ramires is a 83-year-old female with a medical history significant for hypertension, hyperlipidemia, anxiety/depression who presents with 10-day onset of worsening shortness of breath. Patient and daughter state patient was recently fitted with a new CPAP mask as the previous one was uncomfortable, and over the past 10 days has noted increasing shortness of breath and leg swelling. Also endorses orthopnea, denies chest pain, abdominal pain, fever/chills. No cardiac history, CVA. On presentation, patient was noted to be in A-fib RVR in the 160s. Other workup significant for BNP 3990, TSH 6.58, CTA chest showing bibasilar pneumonia with small pleural effusions. She was given aspirin 324 mg, IV Lopressor 5 mg, Lasix 60 mg, Lovenox 120 mg. Case discussed with ED provider and decision was made to admit patient for new onset A-fib RVR, heart failure, and community-acquired pneumonia. Hospital Course Hospital Course Hospital Course: Estefania Ramires is a 83-year-old female with a medical history significant for hypertension, hyperlipidemia, anxiety/depression who presents with 10-day onset of worsening shortness of breath. Patient and daughter state patient was recently fitted with a new CPAP mask as the previous one was uncomfortable, and over the past 10 days has noted increasing shortness of breath and leg swelling. Also endorses orthopnea, denies chest pain, abdominal pain, fever/chills. No cardiac history, CVA. On presentation, patient was noted to be in A-fib RVR in the 160s. Other workup significant for BNP 3990, TSH 6.58, CTA chest showing bibasilar pneumonia with small pleural effusions. She was given aspirin 324 mg, IV Lopressor 5 mg, Lasix 60 mg, Lovenox 120 mg. Case discussed with ED provider and decision was made to admit patient for new onset A-fib RVR, heart failure, and community-acquired pneumonia. #A-fib RVR, new onset #HFpEF exacerbation #Right heart failure ? Ten days of progressive shortness of breath prior to admission, with lower extremity and pulmonary edema. Also noted to have pneumonia, likely triggering. Respiratory panel negative. ? Improved with diltiazem drip. Cardiology started oral diltiazem 360 mg daily. Added metoprolol succinate 25 mg daily for intermittent heart rate in the 100s. ? [id number] score 5. Xarelto 20 mg daily. ? ECHO reveals LVEF 50%, mild reduction in RV function. ? Continue with Lasix 40 mg twice daily, spironolactone 25 mg daily, Jardiance 10 mg. #Community-acquired pneumonia ? CTA chest shows bibasilar pneumonia, WBC and procalcitonin normal. No signs of sepsis. ? Discharged with levofloxacin for 3 more days. #Hypertension ? Diltiazem, spironolactone, Lasix as above. #Hyperlipidemia ? Continue home simvastatin #Anxiety/depression ? Continue home sertraline 100 mg. Total time spent on discharge: 32 minutes on chart review, counseling, documentation, and direct care with patient. Exam Data for Last 24 hours Vital signs and Labs for Last 24 Hours: Temp Pulse Resp BP Pulse Ox O2 Del Method O2 Flow Rate 97.8 F 100 H 18 139/70 92 L Room Air 2 10/08/24 07:00 10/08/24 10:01 10/08/24 10:01 10/08/24 10:01 10/08/24 10:01 10/08/24 11:15 10/07/24 08:00 Laboratory Results - last 24 hr 10/08/24 02:10: Urine Color Yellow, Urine Appearance Clear, Urine pH 6.0, Ur Specific [place] 1.015, Urine Protein Negative, Urine Glucose (UA) Negative, Urine Ketones Negative, Urine Blood Negative, Urine Nitrate Negative, Urine Bilirubin Negative, Urine Urobilinogen 0.2, Ur Leukocyte Esterase Negative, Urine RBC None, Urine WBC None, Ur Squamous Epith Cells Occasional 10/08/24 05:26: WBC 5.1, RBC 3.99 L, Hgb 11.9 L, Hct 37.5, MCV 94.0, MCH 29.8, MCHC 31.7 L, RDW 12.8, Plt Count 200, MPV 12.4 H, Neut % (Auto) 54.3, Lymph % (Auto) 27.1, [place] % (Auto) 13.3 H, Eos % (Auto) 4.3, Baso % (Auto) 0.8, Neut # (Auto) 2.8, Lymph # (Auto) 1.4, [place] # (Auto) 0.7, Eos # (Auto) 0.2, Baso # (Auto) 0.0, Sodium 139, Potassium 3.7, Chloride 103, Carbon Dioxide 31 H, Anion Gap 8.7, BUN 20 H, Creatinine 1.00, Estimated Creat Clear 39, Estimated GFR 53 L , Est GFR ( Amer) 64, Glucose 110 H, Calcium 9.1, Magnesium 1.7, Total Bilirubin 0.3, AST 32, ALT 30, Alkaline Phosphatase 86, Total Protein 6.0 L, Albumin 3.6, Globulin 2.4, Albumin/Globulin Ratio 1.5 I & O for Last 24 hours: Intake & Output 10/05/24 10/06/24 10/07/24 10/08/24 23:59 23:59 23:59 23:59 Intake Total 218.917 / 683.442 9011.583 / 2405.583 Output Total 1550 / 1550 3175 / 3175 400 / 400 Balance -1331.083 / -1251.083 -769.417 / -769.417 -400 / -400 Weight 124.341 kg 124.148 kg 124.194 kg Constitutional Constitutional: no acute distress *Routine HEENT Exam Head: Present normocephalic Eye: Present EOMI and PERRL ENT: Present mucous membranes moist *Routine Neck Exam Neck: Present supple; Absent lymphadenopathy *Routine Respiratory Exam Respiratory: Present CTA bilaterally *Routine Cardiovascular Exam Cardiovascular: Present RRR *Routine Abdominal Exam Abdominal: Present soft and normoactive bowel sounds; Absent tenderness *Routine Extremities Exam Extremities: Absent cyanosis, clubbing or edema *Routine Skin Exam Skin: Present warm; Absent rash *Routine Neurological Exam Neurological: Present alert and oriented X3 Results Data Completed and Pending Labs on day of discharge: Labs from last 24 hours 10/08/24 10/08/24 05:26 02:10 WBC 5.1 RBC 3.99 L Hgb 11.9 L Hct 37.5 MCV 94.0 MCH 29.8 MCHC 31.7 L RDW 12.8 Plt Count 200 MPV 12.4 H Neut % (Auto) 54.3 Lymph % (Auto) 27.1 [place] % (Auto) 13.3 H Eos % (Auto) 4.3 Baso % (Auto) 0.8 Neut # (Auto) 2.8 Lymph # (Auto) 1.4 [place] # (Auto) 0.7 Eos # (Auto) 0.2 Baso # (Auto) 0.0 Sodium 139 Potassium 3.7 Chloride 103 Carbon Dioxide 31 H Anion Gap 8.7 BUN 20 H Creatinine 1.00 Estimated Creat Clear 39 Estimated GFR 53 L Est GFR ( Amer) 64 Glucose 110 H Calcium 9.1 Magnesium 1.7 Total Bilirubin 0.3 AST 32 ALT 30 Alkaline Phosphatase 86 Total Protein 6.0 L Albumin 3.6 Globulin 2.4 Albumin/Globulin Ratio 1.5 Urine Color Yellow Urine Appearance Clear Urine pH 6.0 Ur Specific [place] 1.015 Urine Protein Negative Urine Glucose (UA) Negative Urine Ketones Negative Urine Blood Negative Urine Nitrate Negative Urine Bilirubin Negative Urine Urobilinogen 0.2 Ur Leukocyte Esterase Negative Urine RBC None Urine WBC None Ur Squamous Epith Cells Occasional DS: Diagnosis Discharge Diagnosis (1) Atrial fibrillation, new onset: Status: Acute Code(s): I48.91 - Unspecified atrial fibrillation (2) New onset of congestive heart failure: Status: Acute Code(s): I50.9 - Heart failure, unspecified Meds Home Medications and Allergies Home Medications ?Medication ?Instructions ?Recorded ?Confirmed ?Type hydrochlorothiazide 25 mg tablet 25 mg PO DAILY 10/06/24 10/06/24 History sertraline 100 mg tablet 100 mg PO DAILY 10/06/24 10/06/24 History tramadol 50 mg tablet 50 mg PO NEEDED PRN back pain 10/06/24 10/06/24 History diltiazem HCl 180 mg 360 mg (2 x 180 mg) PO DAILY 30 10/08/24 Rx capsule,extended release 24 hr days #60 caps empagliflozin 10 mg tablet 10 mg PO DAILY 30 days #30 tabs 10/08/24 Rx (Jardiance) furosemide 40 mg tablet 40 mg PO BIDL 30 days #60 tabs 10/08/24 Rx levofloxacin 750 mg tablet 750 mg PO Q48H 3 days #2 tabs 10/08/24 Rx metoprolol succinate 25 mg 25 mg PO DAILY 30 days #30 tabs 10/08/24 Rx tablet,extended release 24 hr rivaroxaban 15 mg tablet (Xarelto) 15 mg PO QPMWITHMEAL 30 days #30 10/08/24 Rx tabs simvastatin 40 mg tablet 10 mg (1/4 x 40 mg) PO DAILY 30 10/08/24 Rx days #8 tabs spironolactone 25 mg tablet 25 mg PO DAILY 30 days #30 tabs 10/08/24 Rx New Prescriptions to Start Prescriptions: diltiazem HCl Clemente,Jordy empagliflozin [Jardiance] Clemente,Jordy furosemide Clemente,Jordy levofloxacin Clemente,Jordy metoprolol succinate Clemente,Jordy rivaroxaban [Xarelto] Clemente,Jordy simvastatin Clemente,Jordy spironolactone Clemente,Jordy Allergies Allergy/AdvReac Type Severity Reaction Status Date / Time No Known Allergies Allergy Verified 10/06/24 16:29 Discharge Plan Disposition Patient Disposition: Home, Self-Care Condition: Fair Discharge Order Discharge Orders: Discharge Order (Routine); Ordered 10/08/24 Ordered By: Jordy Cornejo Follow up Plan Follow up with: Annmarie Durham APRN [Nurse Practitioner] - 10/12/24 11:00 am Chelsie Crews [Primary Care Provider] - Enter time for follow up Prescriptions/Medication Reconciliation: New furosemide 40 mg Tablet 40 mg PO BIDL 30 Days Qty: 60 0RF diltiazem HCl 180 mg Capsule,Extended Release 24hr 360 mg PO DAILY 30 Days Qty: 60 0RF spironolactone 25 mg Tablet 25 mg PO DAILY 30 Days Qty: 30 0RF metoprolol succinate 25 mg Tablet Extended Release 24 Hr 25 mg PO DAILY 30 Days Qty: 30 0RF Xarelto 15 mg Tablet 15 mg PO QPMWITHMEAL 30 Days Qty: 30 0RF Jardiance 10 mg Tablet 10 mg PO DAILY 30 Days Qty: 30 0RF levofloxacin 750 mg tablet 750 mg PO Q48H 3 Days Qty: 2 0RF Continued sertraline 100 mg tablet 100 mg PO DAILY Patient Comments: TAKE 1 TABLET BY MOUTH ONCE DAILY hydrochlorothiazide 25 mg tablet 25 mg PO DAILY Patient Comments: TAKE 1 TABLET BY MOUTH ONCE DAILY tramadol 50 mg tablet 50 mg PO NEEDED PRN (Reason: back pain ) Patient Comments: TAKE 1 TABLET BY MOUTH THREE TIMES DAILY Changed simvastatin 40 mg tablet 10 mg PO DAILY 30 Days Qty: 8 0RF Patient Comments: TAKE 1 TABLET BY MOUTH ONCE DAILY Problem Reconciliation Problems Reviewed?: Yes Patient Discharge Instructions Patient Instructions: Heart Failure, Atrial Fibrillation Print Language: [place] Providers Primary Care Provider: Chelsie Crews Admit Provider: Jordy Cornejo Attending Provider: Jordy Cornejo
--- NOTE | 2024-10-09 10:15 | SW/DCPLANNER ---
Spoke with patient on the phone. Patient stated that she is doing very good. Patient stated that she is aware of her upcoming appointments. Patient stated that [facility] able [facility]. Patient stated that she took her heart monitor off to take a shower and it turned white instead of turning green. I transferred patients phone call to respiratory to see if they could help with the problem. Diego stated that she has no concerns or questions at this time. Patient stated that she was very grateful for all the kind and helpful staff here at the hospital. Cele Moody
== END 2024-10-08 12:41 | disposition home or self-care (01) | DRG 291 ==
LOC: ER 09:24 → ICU 10:08
PROVIDERS: Admitting Provider Student in an Organized Health Care Education/Training Program; Emergency Provider Emergency Medicine; PCP Nurse Practitioner Family; Visit Provider Student in an Organized Health Care Education/Training Program
DX: I11.0 Hypertensive heart disease with heart failure (principal); I50.33 Acute on chronic diastolic (congestive) heart failure; J18.9 Pneumonia, unspecified organism; J90 Pleural effusion, not elsewhere classified; I48.91 Unspecified atrial fibrillation; R06.02 Shortness of breath; R06.01 Orthopnea; G47.33 Obstructive sleep apnea (adult) (pediatric); F32.A Depression, unspecified; F41.9 Anxiety disorder, unspecified; E78.5 Hyperlipidemia, unspecified; Z79.899 Other long term (current) drug therapy
CPT/HCPCS: 36415; 71045; 71275; 80053; 80061; 81001; 82803; 83036; 83690; 83735; 83880; 84145; 84436; 84439; 84443; 84484; 85025; 85378; 85610; 85730; 86803; 87389; 87631; 93005; 93270; 93306; 99291; J0696; J1650; J1940; J7120; Q9957; Q9967

== ENCOUNTER 2024-10-12 11:51 | Outpatient (CLI) | payer MEDICARE, SELFPAY ==
[2024-10-12 12:52] LABS: Basophils # 0.1 K/mm3 (0-0.2); Basophils % 0.6 % (0.1-2.0); Eosinophils # 0.1 K/mm3 (0.0-0.4); Eosinophils % 1.4 % (0.1-12.0); Hematocrit 42.2 % (37.0-47.0); Hemoglobin 13.8 g/dL (12.2-16.2); Lymphocytes # 1.7 K/mm3 (0.7-4.5); Lymphocytes % 19.3 % (10-50); Mean Corpuscular HGB Conc 32.7 g/dL (31.8-35.4); Mean Corpuscular Hemoglobin 29.8 pg (27.0-31.2); Mean Corpuscular Volume 91.1 fl (81-99); Mean Platelet Volume 12.3 fl (7.4-10.4); Monocytes # 0.9 K/mm3 (0.1-1.0); Monocytes % 9.8 % (1.7-9.3); Neutrophils # 5.9 K/mm3 (1.8-7.8); Neutrophils % 67.4 % (37.0-80.0); Platelet Count 212 K/mm3 (142-424); Red Blood Count 4.63 M/mm3 (4.20-5.40); Red Cell Distribution Width 12.5 % (11.5-17.5); White Blood Count 8.7 K/mm3 (4.8-10.8)
[2024-10-12 13:28] LABS: Chloride 96 mmol/L (98-107)
[2024-10-12 13:29] LABS: Potassium 3.6 mmoL/L (3.5-5.1); Sodium 137 mmol/L (136-145)
[2024-10-12 13:31] LABS: Blood Urea Nitrogen 23 mg/dl (7-17); Estimated Glomerular Filt Rate 47 ml/min (>60); GFR (African American) 57 ML/MIN (>60)
[2024-10-12 13:32] LABS: Anion Gap 9.6 mEq/L (5-15); Calcium 9.7 mg/dl (8.4-10.2); Carbon Dioxide 35 mmol/L (22.0-30.0); Glucose 124 mg/dl (74-100)
[2024-10-12 13:53] LABS: Free T4 (Free Thyroxine) 1.12 ng/dl (0.78-2.19)
[2024-10-12 14:03] LABS: Thyroid Stimulating Hormone 3.18 uIU/mL (0.465-4.68)
== END 2024-10-12 23:59 | disposition home or self-care (01) ==
LOC: LAB 11:52
PROVIDERS: PCP Nurse Practitioner Family; Visit Provider Nurse Practitioner
DX: E78.5 Hyperlipidemia, unspecified (principal); I50.30 Unspecified diastolic (congestive) heart failure; R06.02 Shortness of breath
CPT/HCPCS: 36415; 80048; 84439; 84443; 85025

== ENCOUNTER 2024-10-20 10:30 | Outpatient (CLI) | payer MEDICARE, SELFPAY ==
[2024-10-20 11:30] LABS: Chloride 100 mmol/L (98-107); Sodium 137 mmol/L (136-145)
[2024-10-20 11:33] LABS: Blood Urea Nitrogen 17 mg/dl (7-17); Estimated Glomerular Filt Rate 53 ml/min (>60); GFR (African American) 64 ML/MIN (>60)
[2024-10-20 11:34] LABS: Calcium 9.7 mg/dl (8.4-10.2); Carbon Dioxide 32 mmol/L (22.0-30.0); Glucose 114 mg/dl (74-100)
== END 2024-10-20 23:59 | disposition home or self-care (01) ==
LOC: LAB 10:31
PROVIDERS: PCP Nurse Practitioner Family; Visit Provider Nurse Practitioner
DX: E78.5 Hyperlipidemia, unspecified (principal); I50.30 Unspecified diastolic (congestive) heart failure
CPT/HCPCS: 36415; 80048

== ENCOUNTER 2024-12-22 10:00 | Outpatient (CLI) | payer MEDICARE, SELFPAY ==
[2024-12-22 11:16] LABS: Anion Gap 12.3 mEq/L (5-15); Blood Urea Nitrogen 30 mg/dl (7-17); Calcium 9.9 mg/dl (8.4-10.2); Carbon Dioxide 31 mmol/L (22.0-30.0); Chloride 99 mmol/L (98-107); Estimated Glomerular Filt Rate 53 ml/min (>60); GFR (African American) 64 ML/MIN (>60); Glucose 115 mg/dl (74-100); Magnesium 1.9 mg/dl (1.6-2.3); Potassium 4.3 mmoL/L (3.5-5.1); Sodium 138 mmol/L (136-145)
== END 2024-12-22 23:59 | disposition home or self-care (01) ==
LOC: LAB 10:01
PROVIDERS: PCP Nurse Practitioner Family; Visit Provider Nurse Practitioner
DX: I48.0 Paroxysmal atrial fibrillation (principal)
CPT/HCPCS: 36415; 80048; 83735